=== PATIENT | female | born 1990 ===

== ENCOUNTER 2016-10-03 13:11 | Emergency (ER) | payer MEDICAID ==
[2016-10-03 14:25] LABS: URINE BILIRUBIN NEGATIVE (NEGATIVE); URINE BLOOD NEGATIVE (NEGATIVE); URINE GLUCOSE (UA) NEGATIVE (NEGATIVE); URINE LEUKOCYTE ESTERASE TRACE (NEGATIVE); URINE NITRITE NEGATIVE (NEGATIVE); URINE PROTEIN NEGATIVE (NEGATIVE); URINE UROBILINOGEN NORMAL (0-1 mg/dl)
[2016-10-03 14:26] LABS: URINE APPEARANCE HAZY; URINE COLOR YELLOW
[2016-10-03 14:29] LABS: HCG,QUALITATIVE URINE NEGATIVE
[2016-10-03 14:51] LABS: URINE BACTERIA FEW
--- NOTE | 2016-10-03 17:48 | RAD ---
CHEST - 2 VIEWS COMPARISON: None. HISTORY: Chest pain. Pelvis for 3 weeks. FINDINGS: Views: Frontal and lateral chest Lungs: Normal Heart and vessels: Normal Trachea and bronchi: Normal Mediastinum and solomon: Normal Costophrenic sulci: Normal Chest wall and bones: Normal. Upper abdomen: Normal. IMPRESSION: Negative 2 view chest.
== END 2016-10-03 16:57 | disposition home or self-care (01) ==
LOC: ED 13:11
DX: M79.1 Myalgia (principal); R07.9 Chest pain, unspecified; R11.0 Nausea